=== PATIENT | female | born 1935 | race Caucasian/White ===

== ENCOUNTER → 2016-07-16 | Outpatient (CLI) | payer MEDICARE ==
--- NOTE | 2016-07-16 11:08 | XR ---
EXAMINATION TYPE: XR Hip Complete LT DATE OF EXAM: 07/16/2016 9:35 AM COMPARISON: NONE HISTORY: Left hip pain There is no evidence of erosive change or acute fracture. There is moderate to severe narrowing of the joint space. Diffuse osteopenia noted. Vascular calcific ation seen. Impression 1. No evidence of acute fracture or dislocation. 2. Arthritic changes.
== END | disposition home or self-care (01) ==
LOC: RADXRMAIN 09:16
PROVIDERS: ATTEND Family Medicine
DX: M25.552 Pain in left hip (principal)
CPT/HCPCS: 73502

== ENCOUNTER → 2020-02-13 | Outpatient (CLI) | payer MEDICARE | END | disposition home or self-care (01) | LOC: NEUROMAIN 07:54 | PROVIDERS: ATTEND Family Medicine | DX: Z53.9 Procedure and treatment not carried out, unspecified reason (principal) | CPT/HCPCS: 95819 ==

== ENCOUNTER → 2020-03-02 | Outpatient (CLI) | payer MEDICARE ==
--- NOTE | 2020-03-02 13:39 | MR ---
EXAMINATION TYPE: MR brain wo con DATE OF EXAM: 03/02/2020 1:32 PM COMPARISON: 09/26/2015 HISTORY: Syncope and collapse, fatigue FINDINGS: The ventricles, basal cisterns and sulci overlying the cerebral convexities are moderately enlarged. There is evidence of moderate periventricular white matter ischemic demyelination. Remote deep white matter insults are also noted. No acute edema is seen on diffusion weighted imaging. There is no evidence for midline shift or mass effect. Acute intracranial hemorrhage or extra-axial collection is not evident. The paranasal sinuses and mastoid air cells are well-aerated. IMPRESSION: Age-related atrophic and chronic small vessel ischemic change. No acute intracranial process at this time.
== END | disposition home or self-care (01) ==
LOC: RADMRIMAIN 12:47
PROVIDERS: ATTEND Family Medicine
DX: I67.82 Cerebral ischemia (principal); G31.1 Senile degeneration of brain, not elsewhere classified
CPT/HCPCS: 70551

== ENCOUNTER 2020-10-31 13:42 | Emergency (ER) | payer MEDICARE ==
[2020-10-31 14:07] VITALS: TEMP 98.2
--- NOTE | 2020-10-31 15:21 | XR ---
EXAMINATION TYPE: XR KUB DATE OF EXAM: 10/31/2020 2:56 PM CLINICAL HISTORY: Abdominal pain and constipation. TECHNIQUE: Single upright KUB image of the abdomen is obtained. COMPARISON: None. 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 Scattered gas seen in nondistended small bowel loops. Gas and fecal material seen in no ndistended colon. Mild diffuse fecal prominence. Lung bases are clear. No free air. Overlying vascula r calcification. Cardiomegaly noted. IMPRESSION: Overall nonobstructive bowel gas pattern. Mild diffuse colonic fecal stasis.
--- NOTE | 2020-10-31 15:44 | ED ---
General Adult HPI - General Chief complaint: Abdominal Pain Stated complaint: bowel problem Time Seen by Provider: 10/31/20 14:26 Source: patient, family Mode of arrival: ambulatory Limitations: no limitations - History of Present Illness Initial comments: Patient is an 85-year-old female presenting to the emergency Department with complaints of some lower abdominal pressure and constipation since Thursday. Patient states that she spoke to her PCP over the phone today and they were concerned for possible impaction so wanted her to go into the ER. Patient states she's had issues with constipation her whole life, her last bowel movement was 2 days ago. She admits to some lower abdominal pressure, rectal pressure. No abdominal pain, no fevers or chills, no nausea or vomiting. She states she did not pass any gas today. She denies history of abdominal surgeries however she does have severe scoliosis. A stool softener. She states her normal bowel movements are every 1-2 days. She has no further complaints at this time. - Related Data Home Medications Medication Instructions Recorded Confirmed amLODIPine [Norvasc] 10 mg PO DAILY 09/28/15 10/31/20 Mirtazapine [Remeron] 15 mg PO HS 05/30/16 10/31/20 Acetaminophen Tab [Tylenol Tab] 500 mg PO Q6HR PRN 10/31/20 10/31/20 Atorvastatin [Lipitor] 10 mg PO DAILY 10/31/20 10/31/20 Ergocalciferol [Vitamin D2 (1250 1,250 mcg PO WE 10/31/20 10/31/20 Mcg = 95445 Iu)] Losartan Potassium 100 mg PO DAILY 10/31/20 10/31/20 carvediloL [Coreg] 3.125 mg PO BID 10/31/20 10/31/20 metFORMIN HCL [Glucophage] 250 mg PO DAILY 10/31/20 10/31/20 Allergies Allergy/AdvReac Type Severity Reaction Status Date / Time No Known Allergies Allergy Verified 10/31/20 15:43 Review of Systems ROS Statement: Those systems with pertinent positive or pertinent negative responses have been documented in the HPI. ROS Other: All systems not noted in ROS Statement are negative. Past Medical History Past Medical History: Hypertension Additional Past Medical History / Comment(s): chronic back pain, CMV History of Any Multi-Drug Resistant Organisms: None Reported Past Surgical History: Appendectomy, Joint Replacement, Orthopedic Surgery, Tonsillectomy Additional Past Surgical History / Comment(s): cataracts with lens implant, laminectomy 1 week ago (lumbar region) Past Anesthesia/Blood Transfusion Reactions: No Reported Reaction Past Psychological History: No Psychological Hx Reported Smoking Status: Never smoker Past Alcohol Use History: None Reported Past Drug Use History: None Reported General Exam - General Exam Comments Initial Comments: GENERAL: Patient is well-developed and well-nourished. Patient is nontoxic and in no acute distress. HEAD: Atraumatic, normocephalic. EYES: Pupils equal round and reactive to light, extraocular movements intact, sclera anicteric, conjunctiva are normal. Eyelids were unremarkable. ENT: TMs normal, nares patent, oropharynx clear without exudates. Moist mucous membranes. NECK: Normal range of motion, supple without lymphadenopathy or JVD. LUNGS: Unlabored respirations. Breath sounds clear to auscultation bilaterally and equal. No wheezes rales or rhonchi. HEART: Regular rate and rhythm without murmurs, rubs or gallops. ABDOMEN: Soft, mild pressure feeling in the lower abdomen, normoactive bowel sounds. No guarding, no rebound. No masses appreciated. : Deferred MUSCULOSKELETAL: Normal extremities with adequate strength and normal range of motion, no pitting or edema. No clubbing or cyanosis. NEUROLOGICAL: Patient is alert and oriented x 3. Motor and sensory are also intact. Cranial nerves II through XII grossly intact. Symmetrical smile. Normal speech, normal gait. PSYCH: Normal mood, normal affect. SKIN: Warm, Dry, normal turgor, no rashes or lesions noted. Limitations: no limitations Rectal exam: Present: normal inspection, normal rectal tone, fecal impaction Course Vital Signs 10/31/20 14:05 Temperature 98.2 F Pulse Rate 58 L Respiratory 17 Rate Blood Pressure 159/73 O2 Sat by Pulse 95 Oximetry Procedures - Rectal Disimpaction Consent Obtained: verbal consent Indication: fecal impaction Technique: manual disimpaction with gloved finger Result: significant stool output Complications: none Patient Tolerated Procedure: well Medical Decision Making - Medical Decision Making Patient is an 85-year-old female here for constipation for the past 2 days. She has some lower abdominal pressure and rectal pressure. KUB shows overall nonobstructive bowel gas pattern, diffuse colonic fecal stasis. We did attempt an enema without success. I did do a rectal disimpaction, significant stool output noted. Patient states relief of pressure. I did recommend increasing her water intake, recommended MiraLAX for stool softener. Patient will follow up with her PCP. Patient is stable for discharge. Patient is in agreement with this plan of care. Return parameters were discussed with the patient and they verbalized understanding. Case discussed with Dr. Cruz. Disposition Clinical Impression: Constipation, Fecal impaction in rectum Disposition: HOME SELF-CARE Condition: Stable Instructions (If sedation given, give patient instructions): Constipation (ED) Additional Instructions: Please return to the Emergency Department if symptoms worsen or any other concerns. Recommend increasing her water intake, MiraLAX for a stool softener. Follow-up with your PCP. Is patient prescribed a controlled substance at d/c from ED?: No Referrals: Griselda Antony DO [Primary Care Provider] - 1-2 days Time of Disposition: 17:41
[2020-10-31 18:05] VITALS: BP 133/84; PULSE 71; RESP 18
== END 2020-10-31 18:05 | disposition home or self-care (01) ==
LOC: EC 13:42
DX: K56.41 Fecal impaction (principal); I10 Essential (primary) hypertension; Z79.84 Long term (current) use of oral hypoglycemic drugs; Z79.899 Other long term (current) drug therapy
CPT/HCPCS: 74018; 99283

== ENCOUNTER → 2020-12-26 | Outpatient (CLI) | payer MEDICARE ==
--- NOTE | 2020-12-26 16:22 | XR ---
Abdomen HISTORY: Diarrhea, R 19.7 Frontal abdomen correlated prior KUB 10/31/2020 There is a marked scoliosis as on prior exam. Bone mineralization is reduced. There is retained fecal debris present within the colon. There is no evident pneumoperitoneum or bowel obstruction. Heart ma y be enlarged. No evident pathologic calcification. IMPRESSION: Correlate for fecal stasis.
== END | disposition home or self-care (01) ==
LOC: RADXRMAIN 15:30
PROVIDERS: ATTEND Physician Assistant
DX: R19.7 Diarrhea, unspecified (principal)
CPT/HCPCS: 74018; 87045; 87046

== ENCOUNTER 2021-12-11 08:59 | Day surgery (SDC) | payer MEDICARE ==
[~2021-12-11 08:59] MED LIST: LACTATED RINGERS 1,000 ML IV SCH; LIDOCAINE 1% (10MG/ML) FOR IV START INTRADERMA PRN
[2021-12-11 09:41] VITALS: TEMP 97
[2021-12-11 10:06] LABS: Glucose,Whole Blood 87 mg/dL (75-99)
[2021-12-11] MEDS ORDERED: PROPOFOL 10 MG/ML 20 ML VIAL IV ONE (10:21)
--- NOTE | 2021-12-11 10:59 | P.PCN ---
Date of Procedure: 12/11/21 Procedure(s) Performed: Brief history: Patient is a pleasant 86-year-old white female scheduled for an elective upper endoscopy as well as colonoscopy as a part of evaluation of abdominal pain/abdominal bloating and change in bowel habits for the last several years duration. She recently had a CT of abdomen and pelvis done that showed thickening of the pyloric area as well as the sigmoid colon. Procedure performed: Esophagogastroduodenoscopy with biopsy Colonoscopy Preoperative diagnosis: Abdominal pain/abdominal bloating Change in bowel habits Abnormal CAT scan of abdomen revealed thickened pyloric area as well as sigmoid colon Anesthesia: MAC Procedure: After informed consent was obtained from the patient was brought into the endoscopy unit and IV sedation was administered by anesthesia under continuous monitoring. Initially upper endoscopy was done. The Olympus GF 160 video endoscope was inserted inserted into the mouth and esophagus intubated without any difficulty and was gradually advanced into the stomach and duodenum and carefully examined. The bulb and second part of the duodenum appeared normal. The scope was then withdrawn into the stomach adequately insufflated with air and upon careful examination the antrum had some gastritis mostly in the prepyloric area with thickened folds and biopsies were done from this area. Mucosa of the body, cardia and fundus appeared normal. The scope was then withdrawn into the esophagus. The GE junction was located at 37 cm to the incisors. It appeared regular with no erythema erosions or ulcerations. Rest of the esophagus appeared normal. Patient tolerated the procedure well. At this time the patient continued to remain sedation. Initial digital rectal examination was normal. Olympus CF 160 video c pediatric olonoscope was then inserted into the rectum and gradually advanced to the cecum with moderate to severe difficulty. Careful examination was performed as the scope was gradually being withdrawn. The prep was excellent. The cecum, ascending colon, transverse colon, descending colon, sigmoid colon and rectum appeared normal. Retroflexion was performed in the rectum and no lesions were noted. Patient tolerated the procedure well. Impression: 1. Upper endoscopy revealed antral gastritis in the pyloric in the prepyloric area status post biopsies 2. Colonoscopy was within normal limits with no evidence of colorectal neoplasia Recommendations: Findings of this examination were discussed with the patient as well as her family. She was advised to follow with the biopsy results. She will continue her current medications and she'll be seen in office in 3-4 weeks.
[2021-12-11 11:31] VITALS: BP 128/52; PULSE 60; RESP 16
== END 2021-12-11 11:40 | disposition home or self-care (01) ==
LOC: ORWHC2ENDO 08:59
PROVIDERS: ATTEND Internal Medicine Gastroenterology
DX: K29.70 Gastritis, unspecified, without bleeding (principal); R19.4 Change in bowel habit; I10 Essential (primary) hypertension; E78.5 Hyperlipidemia, unspecified; E11.9 Type 2 diabetes mellitus without complications; R41.3 Other amnesia; Z79.82 Long term (current) use of aspirin; Z79.84 Long term (current) use of oral hypoglycemic drugs; Z79.899 Other long term (current) drug therapy
CPT/HCPCS: 88305; 45378; 43239; J2704

== ENCOUNTER → 2023-06-11 | Outpatient (CLI) | payer MEDICARE ==
[2023-06-12 02:30] LABS: Calcium 10.2 mg/dL (8.7-10.3); Magnesium 2.2 mg/dL (1.5-2.4)
[2023-06-12 10:57] LABS: Candida albicans IgE Class CLASS 0
[2023-06-12 14:52] LABS: Zinc, Serum 71 ug/dL (60-130)
== END | disposition home or self-care (01) ==
LOC: LABWHC1 11:43
PROVIDERS: ATTEND Family Medicine
DX: E63.9 Nutritional deficiency, unspecified (principal); M81.0 Age-related osteoporosis without current pathological fracture; F63.9 Impulse disorder, unspecified; E55.9 Vitamin D deficiency, unspecified; E11.65 Type 2 diabetes mellitus with hyperglycemia; R53.83 Other fatigue
CPT/HCPCS: 36415; 82306; 82310; 82525; 82533; 82607; 82627; 82746; 83540; 83735; 84207; 84255; 84425; 84591; 84630; 86003